=== PATIENT | male | born 1965 | race Caucasian/White ===

== ENCOUNTER 2025-05-25 08:03 | Inpatient (IN) | payer MEDICAID ==
[~2025-05-25] VITALS: Ht 157.5 cm; Wt 51.3 kg
[2025-05-25 08:07] VITALS: O2SAT 95
[2025-05-25 08:30] LABS: BASOPHILS % 0.6 % (0.0-2.0); EOSINOPHILS % 1.0 % (0.0-5.0); HEMATOCRIT. 43.2 % (42.0-52.0); HEMOGLOBIN. 14.5 g/dL (14.0-18.0); LYMPHOCYTES % 24.4 % (20.0-50.0); MEAN PLATELET VOLUME 7.1 fl (7.4-10.4); MONOCYTES % 5.1 % (2.0-8.0); NEUTROPHILS % 68.9 % (40.0-76.0); PLATELET 266 x1000/uL (130-400); RED BLOOD CELL COUNT 4.67 mill/uL (4.7-6.1); RED CELL DISTRIBUTION WIDTH 13.3 % (11.6-14.6)
[2025-05-25] MEDS: MORPHINE SULFATE 4 MG/ML INJ (FOR IV/IM USE) IV ONE (08:33)
[2025-05-25 08:43] LABS: CREATININE 0.8 mg/dL (0.6-1.3); UREA NITROGEN BLOOD 13 mg/dL (9-23)
[2025-05-25 09:04] LABS: TROPONIN I HIGH SENSITIVITY < 4 ng/L (3.0-53)
[2025-05-25 10:34] VITALS: BP 141/86; PULSE 52; RESP 17; TEMP 36.696
[2025-05-25 12:00] VITALS: BP 112/69; PULSE 57; RESP 17; TEMP 36.5; O2SAT 100
[2025-05-25] MEDS ORDERED: IPRATROPIUM/ALBUTEROL 0.5-3(2.5)MG/3ML NEB HHN PRN (12:30)
[2025-05-25] MEDS ORDERED: DOCUSATE SODIUM 100MG CAPSULE PO PRN (12:30)
[2025-05-25] MEDS ORDERED: DEXTROSE 50% WATER 50ML SYRINGE IV PRN ×2 (12:30)
[2025-05-25] MEDS ORDERED: CLONIDINE 0.1MG TABLET PO PRN (12:30)
[2025-05-25] MEDS ORDERED: ACETAMINOPHEN 325MG TABLET PO PRN (12:30)
[2025-05-25] MEDS ORDERED: ONDANSETRON HCL 4MG/2ML INJ IV PRN (12:30)
[2025-05-25] MEDS ORDERED: ONDA-239 PO (13:51)
[2025-05-25] MEDS ORDERED: MECL-299 PO (13:51)
[2025-05-25] MEDS ORDERED: HYDR-459 PO (13:51)
[2025-05-25] MEDS ORDERED: LOSA100T33 MT (13:51)
[2025-05-25] MEDS ORDERED: PANT40TA51 MT (13:51)
[2025-05-25 15:50] LABS: CREATINE KINASE MB FRACTION 1.9 ng/mL (0.5-3.6)
[2025-05-25 16:00] VITALS: BP 114/68; PULSE 56; RESP 14; TEMP 36.4; O2SAT 99
[2025-05-25 16:10] LABS: TROPONIN I HIGH SENSITIVITY < 4 ng/L (3.0-53)
[2025-05-25] MEDS: ASPIRIN 81MG TABLET PO SCH (16:37)
[2025-05-25] MEDS: PANTOPRAZOLE SODIUM 40 MG/VIAL IV SCH (16:38)
[2025-05-25] MEDS: HYDRALAZINE HCL 25MG TABLET PO SCH (16:38)
[2025-05-25] MEDS: ENOXAPARIN 40MG/0.4ML SYR SUBCUT SCH (16:38)
[2025-05-25] MEDS: BLOOD SUGAR DIAGNOSTIC STRIP TEST SCH (16:50)
[2025-05-25] MEDS ORDERED: BLOOD SUGAR DIAGNOSTIC STRIP TEST SCH (16:50)
[2025-05-25] MEDS: INSULIN LISPRO 100 UNITS/ML SUBCUT SCH (17:20)
[2025-05-25 17:26] LABS: CLARITY URINE CLEAR (CLEAR); COLOR URINE YELLOW (YELLOW); GLUCOSE URINE NEGATIVE (NEGATIVE); KETONES URINE NEGATIVE (NEGATIVE); LEUKOCYTE ESTERASE URINE NEGATIVE (NEGATIVE); NITRITE URINE NEGATIVE (NEGATIVE); OCCULT BLOOD URINE NEGATIVE (NEGATIVE); PH URINE 5.5 (4.5-8.0); PROTEIN URINE NEGATIVE (NEGATIVE); SPECIFIC GRAVITY URINE 1.016 (1.005-1.030); UROBILINOGEN URINE 0.2 E.U./dL (0.2-1.0)
[2025-05-25 18:10] LABS: *AMPHETAMINES SCREEN URINE NEGATIVE (NEGATIVE); *BARBITURATES SCREEN URINE NEGATIVE (NEGATIVE); *BENZODIAZEPINES SCREEN URINE NEGATIVE (NEGATIVE); *COCAINE SCREEN URINE NEGATIVE (NEGATIVE); METHADONE URINE SCREEN NEGATIVE (NEGATIVE); OPIATES URINE SCREEN PRESUMPTIVE POSITIVE (NEGATIVE); PHENCYCLIDINE URINE SCREEN NEGATIVE (NEGATIVE)
[2025-05-25 18:11] LABS: CANNABINOID URINE SCREEN NEGATIVE (NEGATIVE); ECSTASY MDMA SCREEN URINE NEGATIVE (NEGATIVE)
[2025-05-25 20:00] VITALS: BP 114/74; PULSE 51; RESP 15; TEMP 36.5; O2SAT 99
[2025-05-25] MEDS: ATORVASTATIN CALCIUM 40MG TABLET PO SCH (21:04)
[2025-05-25] MEDS: ACETAMINOPHEN 325MG TABLET PO PRN (21:10)
[2025-05-26] VITALS: BP 98/62; PULSE 52; RESP 14; TEMP 36.4; O2SAT 99
[2025-05-26 02:47] LABS: TROPONIN I HIGH SENSITIVITY < 4 ng/L (3.0-53)
[2025-05-26 04:00] VITALS: BP 105/64; PULSE 50; RESP 13; TEMP 36.6; O2SAT 98
[2025-05-26 08:00] VITALS: BP 127/71; PULSE 81; RESP 17; TEMP 36.3; O2SAT 98
[2025-05-26] MEDS ORDERED: HYDROXYZINE 25MG TABLET PO PRN (08:45)
[2025-05-26 12:00] VITALS: BP 122/83; PULSE 53; RESP 15; TEMP 36.4; O2SAT 98
[2025-05-26 12:44] LABS: CREATININE 0.8 mg/dL (0.6-1.3)
[2025-05-26 12:45] LABS: LDL CHOLESTEROL 104 mg/dL (5-100); PROTEIN TOTAL 6.7 g/dL (6.0-8.3); TRIGLYCERIDE 122 mg/dL (0-150); UREA NITROGEN BLOOD 13 mg/dL (9-23)
[2025-05-26 12:46] LABS: ASPARTATE AMINOTRANSFERASE 18 IU/L (<34)
[2025-05-26 12:47] LABS: BILIRUBIN TOTAL 0.8 mg/dL (0.1-1.0); T4 FREE 0.98 ng/dL (0.89-1.76)
[2025-05-26 12:54] VITALS: BP 122/83; PULSE 53; RESP 15; TEMP 98
[2025-05-26] MEDS: INFLUENZA VACCINE 05/PF 0.5 ML SYRINGE IM ONE (14:12)
[2025-05-26] MEDS ORDERED: LOSA100T33 MT (14:23)
[2025-05-26] MEDS ORDERED: PANT40TA51 MT (14:23)
[2025-05-26] MEDS ORDERED: HYDR-459 PO (14:23)
== END 2025-05-26 16:19 | disposition home or self-care (01) | DRG 203 ==
LOC: ER 08:03 → 3WST 09:00 → EDBEDREQTM 09:03 → EDBEDREQ 09:03 → ENRESERV 09:16 → CANRESERV 09:16 → ENRESERV 09:20 → 3WST 09:34
PROVIDERS: ADMIT Internal Medicine; ATTEND Internal Medicine
DX: R07.89 Other chest pain (principal); F41.9 Anxiety disorder, unspecified; I10 Essential (primary) hypertension; Z79.899 Other long term (current) drug therapy
CPT/HCPCS: 36415; 71045; 80048; 80053; 80061; 80305; 81003; 82550; 82553; 82962; 83036; 84439; 84443; 84481; 84484; 85025; 85379; 90686; 93005; 96374; 99285; A4606; J1650; J2270; J2470